=== PATIENT | male | born 1960 | race Caucasian/White ===

== ENCOUNTER → 2017-12-27 | Outpatient (CLI) | payer OTHER ==
[~2017-12-27] MED LIST: CEPH-507 PO; LEVE500T6 PO; METF500T4 PO
--- NOTE | 2017-12-27 15:13 | Diagnostic Imaging Report ---
PROCEDURE: MR imaging of the brain without contrast. TECHNIQUE: Multiplanar, multisequence MR imaging of the brain was performed without contrast. INDICATION: Seizure, convulsion. FINDINGS: There are no previous MRI brain examinations available for comparison. The CT head exam performed on 11/07/2015 failed to show any sign of an acute abnormality. On this study, there is no mass, shift of the midline, or hemorrhage to suggest an acute intracranial abnormality. There is no abnormal signal arising from the brain on the diffusion series to indicate an area of acute ischemia. There is no abnormal signal arising from the brain on the FLAIR series to indicate ischemia from microvascular ischemia or demyelinating disease either. The ventricles are not abnormally dilated and similar to the prior CT head exam. There is mild cortical atrophy. The degree of atrophy is consistent with the patient's age. The sella is not enlarged. The expected carotid flow voids are evident bilaterally, although the right carotid flow void is not particularly well visualized. The sinuses are generally clear. There is a small 1 cm retention cyst in the floor of the left maxillary antrum. There is also fluid and mucosal thickening in each mastoid air cell. This does suggest mastoiditis. In retrospect, this finding was present on the prior exam, and consequently the mastoiditis is felt to be chronic in nature. The seventh and eighth nerve complexes are unremarkable. IMPRESSION: 1. There is no evidence for an acute intracranial abnormality. There is no sign of a mass lesion either. 2. The carotid flow voids are evident bilaterally, although the expected carotid flow void on the right is not particularly well visualized. 3. 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 Dictated on workstation # [id number]
== END ==
LOC: RAD 13:33
PROVIDERS: ATTEND Family Medicine
DX: H70.13 Chronic mastoiditis, bilateral (principal); G44.209 Tension-type headache, unspecified, not intractable; R56.9 Unspecified convulsions
CPT/HCPCS: 70551

== ENCOUNTER 2018-09-22 18:35 | Emergency (ER) | payer OTHER ==
[~2018-09-22] VITALS: Ht 177.8 cm; Wt 98.4 kg
[~2018-09-22 18:35] MED LIST changes: +METF-397 PO; -METF500T4 PO
--- OUTSIDE RECORDS SUMMARY | 2018-09-22 18:41 | XMS REPORT | Continuity of Care Document ---
Author Author [facility] Organization [facility] Address Unknown Phone Unavailable Allergies Active Description Code Type Severity Reaction Onset Reported/Identified Relationship to Patient Clinical Status Yes No Known Drug Allergies [id number] Drug Allergy Unknown N/A 11/07/2015 Medications There is no data. Problems Date Dx Coded Attending Type Code Diagnosis Diagnosed By 12/07/2014 JOSE ANGEL ANGLIN FACC, MIKAYLA FACP CCDS Ot 250.00 12/07/2014 JOSE ANGEL ANGLIN FACC, MIKAYLA FACP CCDS Ot 305.1 12/07/2014 JOSE ANGEL ANGLIN FACC, ALI FACP CCDS Ot 780.2 12/07/2014 JOSE ANGEL ANGLIN FACC, MIKAYLA FACP CCDS Ot 250.00 12/07/2014 JOSE ANGEL ANGLIN FACC, ALI FACP CCDS Ot 305.1 12/07/2014 JOSE ANGEL ANGLIN FACC, ALI FACP CCDS Ot 780.2 12/07/2014 JOSE ANGEL ANGLIN FACC, ALI FACP CCDS Ot 780.2 12/07/2014 JOSE ANGEL ANGLIN FACC, ALI FACP CCDS Ot 250.00 12/07/2014 JOSE ANGEL ANGLIN FACC, ALI FACP CCDS Ot 305.1 12/07/2014 JOSE ANGEL ANGLIN FACC, ALI FACP CCDS Ot 780.2 12/07/2014 JOSE ANGEL ANGLIN FACC, ALI FACP CCDS Ot 250.00 12/07/2014 JOSE ANGEL ANGILN FACC, ALI FACP CCDS Ot 305.1 12/07/2014 JOSE ANGEL ANGLIN FACC, ALI FACP CCDS Ot 780.2 12/07/2014 JOSE ANGEL ANGLIN FACC, ALI FACP CCDS Ot 780.2 12/12/2014 JOSE ANGEL ANGLIN FACC, ALI FACP CCDS Ot 250.00 12/12/2014 JOSE ANGEL ANGLIN FACC, ALI FACP CCDS Ot 305.1 12/12/2014 JOSE ANGEL ANGLIN FACC, ALI FACP CCDS Ot 780.2 12/12/2014 JOSE ANGEL ANGLIN FACC, ALI FACP CCDS Ot 250.00 12/12/2014 JOSE ANGEL ANGLIN FACC, ALI FACP CCDS Ot 305.1 12/12/2014 JOSE ANGEL ANGLIN FACC, ALI FACP CCDS Ot 780.2 12/12/2014 JOSE ANGEL ANGLIN FACC, ALI FACP CCDS Ot 780.2 08/30/2015 JOSE ANGEL ANGLIN FACC, ALI FACP CCDS Ot 250.00 08/30/2015 JOSE ANGEL ANGLIN FACC, ALI FACP CCDS Ot 305.1 08/30/2015 JOSE ANGEL ANGLIN FACC, ALI FACP CCDS Ot 780.2 08/30/2015 JOSE ANGEL ANGILN FACC, ALI FACP CCDS Ot 250.00 08/30/2015 JOSE ANGEL ANGLIN FACC, ALI FACP CCDS Ot 305.1 08/30/2015 JOSE ANGEL ANGLIN FACC, ALI FACP CCDS Ot 780.2 08/30/2015 JOSE ANGEL ANGLIN FACCathryn, ALI FACP CCDS Ot 780.2 11/08/2015 JENN VILLANUEVA MD Ot E11.9 TYPE 2 DIABETES MELLITUS WITHOUT COMPLIC 11/08/2015 JENN VILLANUEVA MD Ot F17.210 NICOTINE DEPENDENCE, CIGARETTES, UNCOMPL 11/08/2015 JENN VILLANUEVA MD Ot G40.409 OTH GENERALIZED EPILEPSY, NOT INTRACTABL 02/12/2016 GRISELDA FONTAINE KNOWLEDGE MANAGER Ot M75.122 05/13/2016 JENN VILLANUEVA MD Ot R06.02 SHORTNESS OF BREATH 08/05/2016 JOSE ANGEL COREAC, ALI FACP CCDS Ot 250.00 DIAB ANDREZ WO COMPL, TYPE II OR UNSPEC TY 08/05/2016 JOSE ANGEL ANGLIN FACC, ALI FACP CCDS Ot 305.1 TOBACCO USE DISORDER 08/05/2016 JOSE ANGEL ANGLIN FACC, ALI FACP CCDS Ot 780.2 SYNCOPE AND COLLAPSE 08/05/2016 JOSE ANGEL ANGLIN FACC, ALI FACP CCDS Ot 250.00 DIAB ANDREZ WO COMPL, TYPE II OR UNSPEC TY 08/05/2016 JOSE ANGEL COREAC, ALI FACP CCDS Ot 305.1 TOBACCO USE DISORDER 08/05/2016 JOSE ANGEL ANGLIN FACC, ALI FACP CCDS Ot 780.2 SYNCOPE AND COLLAPSE 08/05/2016 JOSE ANGEL ANGLIN FACCathryn, ALI FACP CCDS Ot 780.2 SYNCOPE AND COLLAPSE 08/05/2016 Ot R56.9 UNSPECIFIED CONVULSIONS 08/05/2016 GRISELDA FONTAINE Ot M75.122 COMPLETE ROTATR-CUFF TEAR/RUPTR OF LEFT 08/05/2016 JENN VILLANUEVA MD Ot R06.02 SHORTNESS OF BREATH 08/07/2016 ALIYA VILLALTA MD Ot M75.102 UNSP ROTATR-CUFF TEAR/RUPTR OF LEFT SHOU 01/18/2017 JOSE ANGEL ANGLIN FACC, ALI FACP CCDS Ot 250.00 DIAB ANDREZ WO COMPL, TYPE II OR UNSPEC TY 01/18/2017 JOSE ANGEL ANGLIN FACC, ALI FACP CCDS Ot 305.1 TOBACCO USE DISORDER 01/18/2017 JOSE ANGEL ANGLIN FACC, ALI FACP CCDS Ot 780.2 SYNCOPE AND COLLAPSE 01/18/2017 JOSE ANGEL ANGLIN FACC, ALI FACP CCDS Ot 250.00 DIAB ANDREZ WO COMPL, TYPE II OR UNSPEC TY 01/18/2017 JOSE ANGEL MD FACC, ALI FACP CCDS Ot 305.1 TOBACCO USE DISORDER 01/18/2017 JOSE ANGEL ANGLIN FACC, ALI FACP CCDS Ot 780.2 SYNCOPE AND COLLAPSE 01/18/2017 JOSE ANGEL ANGLIN FACC, ALI FACP CCDS Ot 780.2 SYNCOPE AND COLLAPSE 01/18/2017 Ot R56.9 UNSPECIFIED CONVULSIONS 01/18/2017 GRISELDA FONTAINEP Ot M75.122 COMPLETE ROTATR-CUFF TEAR/RUPTR OF LEFT 01/18/2017 JENN VILLANUEVA MD Ot R06.02 SHORTNESS OF BREATH 01/18/2017 PAWAN ANGLIN, ALIYA Nunes Ot M75.102 UNSP ROTATR-CUFF TEAR/RUPTR OF LEFT SHOU 12/27/2017 JENN VILLANUEVA MD Ot G44.209 TENSION-TYPE HEADACHE, UNSPECIFIED, NOT 12/27/2017 JENN VILLANUEVA MD Ot H70.13 CHRONIC MASTOIDITIS, BILATERAL 12/27/2017 JENN VILLANUEVA MD Ot R56.9 UNSPECIFIED CONVULSIONS 02/04/2018 JENN VILLANUEVA MD Ot G44.209 TENSION-TYPE HEADACHE, UNSPECIFIED, NOT 02/04/2018 JENN VILLANUEVA MD Ot H70.13 CHRONIC MASTOIDITIS, BILATERAL 02/04/2018 JENN VILLANUEVA MD Ot R56.9 UNSPECIFIED CONVULSIONS Procedures There is no data. Results There is no data. Encounters ACCT No. Visit Date/Time Discharge Status Pt. Type Provider Facility Loc./Unit Complaint [id number] 12/27/2017 13:33:00 12/27/2017 23:59:59 CLS Outpatient JENN VILLANUEVA MD [facility] RAD R56.9 CONVULSIONS [id number] 08/05/2016 16:13:00 08/05/2016 23:59:59 CLS Outpatient ALIYA VILLALTA MD [facility] RAD ROTATOR CUFF SYNDROME [id number] 05/12/2016 15:23:00 05/12/2016 23:59:59 CLS Outpatient JENN VILLANUEVA MD [facility] RAD SOB/DYSPNEA [id number] 02/11/2016 12:58:00 02/11/2016 23:59:59 CLS Outpatient GRISELDA FONTAINE [facility] RAD RTC TEAR [id number] 11/07/2015 19:48:00 11/08/2015 12:05:00 DIS Inpatient JENN VILLANUEVA MD [facility] 4TH SEIZURE [id number] 05/01/2014 07:54:00 05/01/2014 23:59:59 CLS Outpatient JOSE ANGEL ANGLIN FACC, ALI FACP CCDS [facility] CARD SYNCOPE [id number] 04/20/2014 08:31:00 04/20/2014 23:59:59 CLS Outpatient JOSE ANGEL ANGLIN FACC, ALI FACP CCDS [facility] CARD NEAR SYNCOPE [id number] 04/17/2014 10:25:00 04/17/2014 23:59:59 CLS Outpatient JOSE ANGEL ANGLIN FACC, ALI FACP CCDS [facility] CARD NEAR SYNCOPE [id number] 11/22/2015 07:49:00 Document Registration
[2018-09-22] MEDS ORDERED: NS IV 1000 ML 1,000 ML IV ONE ×2 (18:44→20:26)
--- NOTE | 2018-09-22 19:13 | ED General ---
General Chief Complaint: Cough/Cold/Flu Symptoms Stated Complaint: COUGH,CONFUSION Nursing Triage Note: PT STATES THAT HE HAS HAD COUGHING FITS THAT HAVE BECOME PROGRESSIVELY WORSE OVER THE LAST WEEK PCP PLACED PT ON PO AMOXICILLIN, PT VERBALIZED ZERO IMPROVEMENT IN HIS COUGH. YESTERDAY THE PT REPORTS HE COUGHED REPEATEDLY TIL HE FELL DOWN, PT REMEMBERS HITTING HIS JAW ON THE GROUND. TODAY DENIES NECK PAIN, SOB OR CHEST PAIN. Nursing Sepsis Screen: No Definite Risk Source of Information: Patient Exam Limitations: No Limitations History of Present Illness Date Seen by Provider: Sep 22, 2018 Time Seen by Provider: 18:40 Initial Comments Here with report of difficulty with breathing and coughing fits. Recently on amoxicillin for sinus infection and ear infection. Not better currently. Reports shortness of breath with activity. Currently not on any inhalers or anything for COPD. Does smoke 2 packs of cigarettes daily. Currently recently has coughed so much that caused nearly passed out. Denies injuries. Does report recent fevers. Timing/Duration: 1 Week, Getting Worse Severity: Moderate, Severe Associated Systoms: No Chest Pain; Cough, Fever/Chills; No Nausea/Vomiting; Shortness of Air, Syncope; No Weakness Allergies and Home Medications Allergies Coded Allergies: No Known Drug Allergies (Unverified , 11/07/15) Home Medications Cephalexin 500 Mg Capsule, 500 MG PO TID, (Reported) FILLED 10/29/15 #30 FOR A 10 DAY THERAPY Levetiracetam 500 Mg Tablet, 500 MG PO BID Prescribed by: TERESE OLSON on 11/08/15 1146 Metformin HCl 500 Mg Tablet, 1,000 MG PO DAILY, (Reported) TAKES 2 (500 MG) TABLETS Metformin HCl 500 Mg Tablet, 500 MG PO HS, (Reported) Patient Home Medication List Home Medication List Reviewed: Yes Review of Systems Review of Systems Constitutional: see HPI; No chills; fever EENTM: nose congestion, throat pain Respiratory: cough, dyspnea on exertion Cardiovascular: No chest pain, No edema Gastrointestinal: No abdominal pain, No nausea, No vomiting Genitourinary: no symptoms reported Musculoskeletal: no symptoms reported Skin: no symptoms reported Psychiatric/Neurological: See HPI; Denies Weakness All Other Systems Reviewed Negative Unless Noted: Yes Past Wgxkmat-Vbzyel-Wmfsta Hx Past Med/Social Hx: Reviewed Nursing Past Med/Soc Hx Patient Social History Alcohol Use: Denies Use Recreational Drug Use: No Smoking Status: Current Everyday Smoker Recent Foreign Travel: No Contact w/Someone Who Travel: No Recent Infectious Disease Expo: No Recent Hopitalizations: No Immunizations Up To Date Tetanus Booster (TDap): More than 5yrs PED Vaccines UTD: No Seasonal Allergies Seasonal Allergies: No Past Medical History Surgeries: Yes (carpal tunnel syndrome) Respiratory: Yes Sleep Apnea Currently Using CPAP: Yes Currently Using BIPAP: No Cardiac: No Neurological: Yes Reproductive Disorders: No Genitourinary: No Gastrointestinal: Yes Abdominal Hernia Musculoskeletal: Yes Chronic Back Pain Endocrine: Yes Diabetes, Non-Insulin dep HEENT: Yes Chronic Ear Infection Cancer: No Psychosocial: No Integumentary: Yes (RECENT RASH POSS STRESS RELATED) Blood Disorders: No Family Medical History Reviewed Nursing Family Hx Completed stroke 19 FATHER, , Age:63, Onset:60 years & older Diabetes mellitus 19 MOTHER, Onset:Unknown No Pertinent Family Hx, Stroke Physical Exam-Suspected Sepsis Physical Exam Vital Signs Vital Signs - First Documented 09/22/18 18:40 Temp 98.6 Pulse 115 Resp 20 B/P (MAP) 163/104 (123) Pulse Ox 95 O2 Delivery Room Air Capillary Refill : Less Than 3 Seconds Blood Pressure Mean: 123 Height, Weight, BMI Height: 5'10.00" Weight: 217lbs. 5.0oz. 98.294301vl; BMI Method:Stated General Appearance: No Apparent Distress, WD/WN HEENT: PERRL/EOMI, Pharyngeal Erythema Neck: Non Tender, Supple Respiratory: No Respiratory Distress, Wheezing (a few trace wheezes scattered) Cardiovascular: No Murmur, Tachycardia Gastrointestinal: Non Tender, Soft Back: Normal Inspection, No CVA Tenderness, No Vertebral Tenderness Extremity: Normal Capillary Refill, Normal Range of Motion, Non Tender Neurologic/Psychiatric: Alert, Oriented x3 Skin: normal color, warm/dry Focused Exam Lactate Level 09/22/18 19:29: Lactic Acid Level 3.16*H 09/22/18 21:35: Lactic Acid Level 1.89 Lactic Acid Level Laboratory Tests Test 09/22/18 19:29 09/22/18 21:35 Lactic Acid Level 3.16 MMOL/L (0.50-2.00) *H 1.89 MMOL/L (0.50-2.00) Progress/Results/Core Measures Suspected Sepsis Recent Fever Within 48 Hours: No Infection Criteria Present: Suspected New Infection New/Unexplained Altered Menta: No Sepsis Screen: No Definite Risk SIRS Temperature:98.6 Pulse: 115 Respiratory Rate: 20 Laboratory Tests 09/22/18 19:29: White Blood Count 10.4 Blood Pressure 163 /104 Mean: 123 09/22/18 19:29: Lactic Acid Level 3.16*H 09/22/18 21:35: Lactic Acid Level 1.89 Laboratory Tests 09/22/18 19:29: Creatinine 1.06, Platelet Count 221, Total Bilirubin 0.2 Results/Orders Lab Results Laboratory Tests Test 09/22/18 19:29 09/22/18 21:35 Range/Units White Blood Count 10.4 4.3-11.0 10^3/uL Red Blood Count 4.76 4.35-5.85 10^6/uL Hemoglobin 15.1 13.3-17.7 G/DL Hematocrit 44 40-54 % Mean Corpuscular Volume 92 80-99 FL Mean Corpuscular Hemoglobin 32 25-34 PG Mean Corpuscular Hemoglobin Concent 34 32-36 G/DL Red Cell Distribution Width 13.4 10.0-14.5 % Platelet Count 221 130-400 10^3/uL Mean Platelet Volume 9.7 7.4-10.4 FL Neutrophils (%) (Auto) 67 42-75 % Lymphocytes (%) (Auto) 23 12-44 % Monocytes (%) (Auto) 7 0-12 % Eosinophils (%) (Auto) 2 0-10 % Basophils (%) (Auto) 0 0-10 % Neutrophils # (Auto) 7.0 1.8-7.8 X 10^3 Lymphocytes # (Auto) 2.4 1.0-4.0 X 10^3 Monocytes # (Auto) 0.8 0.0-1.0 X 10^3 Eosinophils # (Auto) 0.2 0.0-0.3 10^3/uL Basophils # (Auto) 0.0 0.0-0.1 10^3/uL Sodium Level 133 L 135-145 MMOL/L Potassium Level 4.0 3.6-5.0 MMOL/L Chloride Level 99 98-107 MMOL/L Carbon Dioxide Level 21 21-32 MMOL/L Anion Gap 13 5-14 MMOL/L Blood Urea Nitrogen 13 7-18 MG/DL Creatinine 1.06 0.60-1.30 MG/DL Estimat Glomerular Filtration Rate > 60 BUN/Creatinine Ratio 12 Glucose Level 255 H 70-105 MG/DL Lactic Acid Level 3.16 *H 1.89 0.50-2.00 MMOL/L Calcium Level 8.5 8.5-10.1 MG/DL Corrected Calcium 8.7 8.5-10.1 MG/DL Total Bilirubin 0.2 0.1-1.0 MG/DL Aspartate Amino Transf (AST/SGOT) 14 5-34 U/L Alanine Aminotransferase (ALT/SGPT) 9 0-55 U/L Alkaline Phosphatase 62 40-136 U/L C-Reactive Protein High Sensitivity 0.26 0.00-0.50 MG/DL Total Protein 6.6 6.4-8.2 GM/DL Albumin 3.8 3.2-4.5 GM/DL Micro Results Microbiology 09/22/18 Influenza Types A,B Antigen (BHARATHI) - Final, Complete My Orders Orders - NICOLÁS YEPEZ MD Cbc With Automated Diff (09/22/18 18:44) Comprehensive Metabolic Panel (09/22/18 18:44) Hs C Reactive Protein (09/22/18 18:44) Lactic Acid Analyzer (09/22/18 18:44) Blood Culture (09/22/18 18:44) Influenza A And B Antigens (09/22/18 18:44) Sputum Culture (09/22/18 18:44) Saline Lock/Iv-Start (09/22/18 18:44) Ns Iv 1000 Ml (Sodium Chloride 0.9%) (09/22/18 18:44) Chest Pa/Lat (2 View) (09/22/18 18:44) Albuterol/Ipra Inhalation Soln (Duoneb I (09/22/18 19:15) Svn Small Volume Nebulizer (09/22/18 19:14) Saline Lock/Iv-Start (09/22/18 20:26) Ns Iv 1000 Ml (Sodium Chloride 0.9%) (09/22/18 20:26) Ct Head Wo (09/22/18 20:26) Ceftriaxone For Iv Use (Rocephin For I (09/22/18 20:30) Prednisone Tablet (Deltasone Tablet) (09/22/18 20:30) Rx-Albuterol Inhaler (Rx-Proair) (09/22/18 22:15) Medications Given in ED Current Medications Medications Dose Ordered Sig/Omid Route Start Time Stop Time Status Last Admin Dose Admin Albuterol/ Ipratropium 3 ml ONCE ONCE INH 09/22/18 19:15 09/22/18 19:16 DC 09/22/18 19:31 3 ML Ceftriaxone Sodium 1000 mg/ Sodium Chloride 60 ml @ 100 mls/hr ONCE ONCE IV 09/22/18 20:30 09/22/18 21:05 DC 09/22/18 20:43 100 MLS/HR Prednisone 60 mg ONCE ONCE PO 09/22/18 20:30 09/22/18 20:31 DC 09/22/18 20:43 60 MG Sodium Chloride 1,000 ml @ 0 mls/hr Q0M ONCE IV 09/22/18 18:44 09/22/18 18:47 DC 09/22/18 20:43 1,000 MLS/HR Vital Signs/I&O 09/22/18 09/22/18 09/22/18 09/22/18 18:40 18:43 19:25 19:59 Temp 98.6 99.2 Pulse 115 105 Resp 20 20 B/P (MAP) 163/104 (123) 148/90 Pulse Ox 95 94 94 O2 Delivery Room Air Room Air Room Air Room Air Capillary Refill : Less Than 3 Seconds Blood Pressure Mean: 123 Progress Note : Progress Note Seen and evaluated. IV, labs, chest x-ray, blood cultures and lactic acid ordered. Normal saline 1 L bolus. Monitor patient. Much better after initial fluids. We will go ahead and get CT scan of the head since he has fallen a couple times. Also there is concerns about sinusitis which we can check on CT scan. Monitor patient. 2100: Patient remains improved. Does have findings of sinusitis. Lactic acid was elevated. We will repeat lactic acid after second liter of fluid. Patient is overall feeling much better. He did get Rocephin 1 g IV. He has been on amoxicillin and I believe he needs increased dosing. We also did give prednisone 60 mg by mouth. He did receive a breathing treatment earlier and this has helped significantly with his cough as well. 2210: Lactic acid now less than 2 and patient is feeling much better. We will give albuterol MDI for home. I did discuss with him that he needs to follow up with his doctor regarding his lung status as he has been a long-term smoker and there is likely COPD. This can be further evaluated outpatient. We will continue steroids over the next 4 days as well as initiate Omnicef treatment for 10 days. Discharged home with return precautions. Patient and family verbalize understanding instructions and agreement with plan. Diagnostic Imaging Diagonstic Imaging: Xray Plain Films/CT/US/NM/MRI: chest Comments [facility] [place], [place] NAME: BHUPINDER ROPER [facility] REC#: [id number] PT STATUS: REG ER : 1960 PHYSICIAN: NICOLÁS YEPEZ MD ADMIT DATE: 09/22/18/ER Draft Date of Exam:09/22/18 CHEST PA/LAT (2 VIEW) INDICATION: Cough, congestion. EXAMINATION: Two-view chest 09/22/2018. COMPARISON: 05/12/2016. FINDINGS: The cardiomediastinal silhouette is unremarkable. The pulmonary vasculature is within normal limits. The lungs and pleural spaces are clear. Density right lung base stable from previous likely calcified granuloma. IMPRESSION: No evidence of an acute cardiopulmonary process. Dictated on workstation # [id number] Dict: 09/22/181942 Trans: 09/22/181947 [id number] Interpreted by: POONAM MCLEAN MD Electronically signed by: Diagonstic Imaging: CT Plain Films/CT/US/NM/MRI: head Comments [facility] [place], [place] NAME: BHUPINDER ROPER [facility] REC#: [id number] PT STATUS: REG ER : 1960 PHYSICIAN: NICOLÁS YEPEZ MD ADMIT DATE: 09/22/18/ER Draft Date of Exam:09/22/18 CT HEAD WO PROCEDURE: CT head without contrast. TECHNIQUE: Multiple contiguous axial images were obtained through the brain without the use of intravenous contrast. INDICATION: Confusion and headache. EXAMINATION: CT brain without contrast, 09/22/2018. COMPARISON: 11/07/2015 FINDINGS: Mild atrophy noted. Mild chronic ischemic changes noted but no acute hemorrhage or infarct appreciated. There is no mass, mass effect or midline shift. No hydrocephalus. Osseous structures demonstrate no acute abnormality. Near-complete opacification of the left maxillary sinus is noted with mucosal thickening noted in the remaining sinuses. Near complete opacification of the left sphenoid sinus also seen. There is age indeterminate opacification of the right mastoid air cells. IMPRESSION: 1. Sinus disease as described with opacification of the right mastoid air cells age-indeterminate. 2. No acute intracranial process. Dictated on workstation # [id number] Dict: 09/22/[id number] Trans: 09/22/182139 [id number] Interpreted by: POONAM MCLEAN MD Electronically signed by: Departure Impression Primary Impression: Acute sinusitis Qualified Codes: J01.00 - Acute maxillary sinusitis, unspecified Additional Impression: Bronchitis Disposition: HOME, SELF-CARE Condition: Improved Departure-Patient Inst. Decision time for Depature: 22:14 Referrals: JENN VILLANUEVA MD (PCP/Family) Primary Care Physician Patient Instructions: Acute Bronchitis, Adult (DC), Sinusitis, Adult (DC) Add. Discharge Instructions: All discharge instructions reviewed with patient and/or family. Voiced understanding. Use albuterol inhaler 2 puffs every 4-6 hours as needed for cough and congestion. Take medications as directed. Drink plenty of fluids. Follow-up with your doctor within the next several days for recheck and further evaluation. Return for worse pain, fever, vomiting, weakness, breathing problems or other concerns as needed. Scripts Prednisone (Prednisone) 20 Mg Tab 40 MG PO DAILY, #8 TAB 0 Refills Prov: NICOLÁS YEPEZ MD 09/22/18 Cefdinir (Cefdinir) 300 Mg Capsule 300 MG PO BID, #20 CAP 0 Refills Prov: NICOLÁS YEPEZ MD 09/22/18 Copy Copies To 1: JENN VILLANUEVA MD, TIMOTHY D MD Sep 22, 2018 19:13
[2018-09-22] MEDS ORDERED: RT-ALBUTEROL/IPRATROPIUM 3 ML (DUONEB) VIAL INH ONE (19:15)
[2018-09-22 19:41] LABS: BASOPHILS % (AUTO) 0 % (0-10); EOSINOPHILS # (AUTO) 0.2 10^3/uL (0.0-0.3); EOSINOPHILS % (AUTO) 2 % (0-10); HEMATOCRIT 44 % (40-54); HEMOGLOBIN 15.1 G/DL (13.3-17.7); LYMPHOCYTES # (AUTO) 2.4 X 10^3 (1.0-4.0); LYMPHOCYTES % (AUTO) 23 % (12-44); MEAN CORPUSCULAR HEMOGLOBIN 32 PG (25-34); MEAN CORPUSCULAR HGB CONC 34 G/DL (32-36); MEAN CORPUSCULAR VOLUME 92 FL (80-99); MEAN PLATELET VOLUME 9.7 FL (7.4-10.4); MONOCYTES # (AUTO) 0.8 X 10^3 (0.0-1.0); MONOCYTES % (AUTO) 7 % (0-12); NEUTROPHILS % (AUTO) 67 % (42-75); PLATELET COUNT 221 10^3/uL (130-400); RED BLOOD COUNT 4.76 10^6/uL (4.35-5.85); RED CELL DISTRIBUTION WIDTH 13.4 % (10.0-14.5); WHITE BLOOD COUNT 10.4 10^3/uL (4.3-11.0)
--- NOTE | 2018-09-22 19:49 | Diagnostic Imaging Report ---
INDICATION: Cough, congestion. EXAMINATION: Two-view chest 09/22/2018. COMPARISON: 05/12/2016. FINDINGS: The cardiomediastinal silhouette is unremarkable. The pulmonary vasculature is within normal limits. The lungs and pleural spaces are clear. Density right lung base stable from previous likely calcified granuloma. IMPRESSION: No evidence of an acute cardiopulmonary process. Dictated by: Dictated on workstation # [id number]
[2018-09-22 20:02] LABS: ALANINE AMINOTRANSFERASE 9 U/L (0-55); ALBUMIN 3.8 GM/DL (3.2-4.5); ALKALINE PHOSPHATASE 62 U/L (40-136); BILIRUBIN,TOTAL 0.2 MG/DL (0.1-1.0); BUN/CREATININE RATIO 12; CALCIUM 8.5 MG/DL (8.5-10.1); CARBON DIOXIDE 21 MMOL/L (21-32); CHLORIDE 99 MMOL/L (98-107); CREATININE SERUM 1.06 MG/DL (0.60-1.30); GFR ESTIMATED > 60; GLUCOSE 255 MG/DL (70-105); SODIUM 133 MMOL/L (135-145); TOTAL PROTEIN 6.6 GM/DL (6.4-8.2)
[2018-09-22] MEDS ORDERED: cefTRIAXone FOR IV USE 1,000 MG in NS (IVPB) 50 ML IV ONE (20:30)
[2018-09-22] MEDS ORDERED: predniSONE 20 MG TAB PO ONE (20:30)
--- NOTE | 2018-09-22 21:41 | Diagnostic Imaging Report ---
PROCEDURE: CT head without contrast. TECHNIQUE: Multiple contiguous axial images were obtained through the brain without the use of intravenous contrast. INDICATION: Confusion and headache. EXAMINATION: CT brain without contrast, 09/22/2018. COMPARISON: 11/07/2015 FINDINGS: Mild atrophy noted. Mild chronic ischemic changes noted but no acute hemorrhage or infarct appreciated. There is no mass, mass effect or midline shift. No hydrocephalus. Osseous structures demonstrate no acute abnormality. Near-complete opacification of the left maxillary sinus is noted with mucosal thickening noted in the remaining sinuses. Near complete opacification of the left sphenoid sinus also seen. There is age indeterminate opacification of the right mastoid air cells. IMPRESSION: 1. Sinus disease as described with opacification of the right mastoid air cells age-indeterminate. 2. No acute intracranial process. Dictated by: Dictated on workstation # [id number]
[2018-09-22] MEDS ORDERED: RX-ALBUTEROL INHALER (PROAIR) 8 GM IH PRN (22:15)
[2018-09-22] MEDS ORDERED: CEFD300C3 PO (22:16)
[2018-09-22] MEDS ORDERED: PRD20T PO (22:16)
[2018-09-22 22:50] VITALS: BP 132/82
== END 2018-09-22 22:53 | disposition home or self-care (01) ==
LOC: EDUNIT# 18:35 → ER 18:37
DX: J01.00 Acute maxillary sinusitis, unspecified (principal); J40 Bronchitis, not specified as acute or chronic; G47.30 Sleep apnea, unspecified; R51 Headache; J44.9 Chronic obstructive pulmonary disease, unspecified; E11.9 Type 2 diabetes mellitus without complications; F17.210 Nicotine dependence, cigarettes, uncomplicated; Z87.19 Personal history of other diseases of the digestive system; Z79.84 Long term (current) use of oral hypoglycemic drugs; Z79.51 Long term (current) use of inhaled steroids
CPT/HCPCS: 36415; 70450; 71046; 80053; 83605; 85025; 86141; 87040; 87804; 94640

== ENCOUNTER → 2022-05-27 | Outpatient (CLI) | payer BC, OTHER ==
[~2022-05-27] MED LIST changes: +CEFD300C3 PO; +PRD20T PO
== END ==
LOC: LAB 08:14
PROVIDERS: ATTEND Family Medicine
DX: E11.9 Type 2 diabetes mellitus without complications (principal); Z20.822 Contact with and (suspected) exposure to COVID-19
CPT/HCPCS: 36415; 83036